=== PATIENT | male | born 1970 ===

== ENCOUNTER 2021-11-26 23:10 | Emergency (ER) | payer MEDICAID ==
[~2021-11-26] VITALS: Ht 193 cm; Wt 99.8 kg
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
--- NOTE | 2021-11-26 23:20 | NUR ---
Dr. Baker on bedside for MSE.
[2021-11-26] MEDS ORDERED: HYDROCODONE/APAP 10-325 MG TABLET PO ONE (23:30)
[2021-11-26] MEDS ORDERED: ONDANSETRON ODT 4 MG TAB.RAPDIS SL ONE (23:30)
[2021-11-26] MEDS ORDERED: ONDANSETRON ODT 4 MG TAB.RAPDIS ONE (23:40)
[2021-11-26] MEDS ORDERED: HYDROCODONE/APAP 10-325 MG TABLET ONE (23:40)
[2021-11-26] MEDS ORDERED: HYDR-4209 PO (23:52)
[2021-11-27] MEDS ORDERED: NEOMY/BACITRA/POLYMYXIN B OINT UD PACKET TP ONE ×2 (00:30→00:37)
[2021-11-27] MEDS ORDERED: HYDROCODONE/APAP 5-325MG TABLET PO ONE (00:30)
[2021-11-27] MEDS ORDERED: HYDROCODONE/APAP 5-325MG TABLET ONE (00:36)
--- NOTE | 2021-11-27 00:40 | NUR ---
Patient discharged to home in stable condition. Written and verbal after care instructions given. Patient verbalizes understanding of instructions. Stressed follow up or return to ER for worsening s/s. Patient ambulated from the ER with steady gait. All belongings with patient.
[2021-11-27 00:54] VITALS: BP 146/107
== END 2021-11-27 00:40 | disposition home or self-care (01) ==
LOC: ER 23:14
DX: S80.01XA Contusion of right knee, initial encounter (principal); Z71.6 Tobacco abuse counseling; F17.210 Nicotine dependence, cigarettes, uncomplicated; Z59.00 Homelessness unspecified; V43.62XA Car passenger injured in collision with other type car in traffic accident, initial encounter; Y93.89 Activity, other specified; Y92.410 Unspecified street and highway as the place of occurrence of the external cause; Y99.8 Other external cause status
CPT/HCPCS: A4663; Q0162